=== PATIENT | female | born 1995 | race Caucasian/White ===

== ENCOUNTER 2017-05-15 17:16 | Emergency (ER) | payer BC, OTHER ==
[2017-05-15 17:21] VITALS: BP 121/60; PULSE 66; TEMP 98; BMI 26.5
[2017-05-15 20:56] LABS: BASOPHIL 0.6 % (0-2.0); EOSINOPHIL 0.3 % (0-4.5); MCH 28.4 pg (25.7-33.7); MCHC 34.2 g/dl (32.0-36.0); MEAN CELL VOLUME 82.9 fl (80-96); MEAN PLT VOLUME 8.9 fl (7.5-11.1); NEUTROPHILS 71.4 % (42.8-82.8); PLATELET COUNT 317 K/MM3 (134-434); RDW 13.9 % (11.6-15.6); WHITE BLOOD COUNT 11.5 K/mm3 (4.0-10.0)
--- NOTE | 2017-05-15 21:05 | PDOC ---
History of Present Illness - General History Source: Patient Exam Limitations: No Limitations - History of Present Illness Initial Comments: 05/15/17 21:15 The patient is a 21 year old female () with a significant past medical history of gestational preeclampsia who presents to the ED with a week of nausea and abdominal pain. Patient reports she took an pill last Sunday at [facility]. Since taking the pill, the patient reports generalized abdominal pain, nausea, and generalized weakness. She states she is unable to eat secondary to nausea. She reports taking nausea medication given to her by [facility] with no relief of present symptoms. Denies fevers or chills. Denies vomiting or diarrhea. Denies dysuria or changes in urinary output. Denies any other symptoms. Allergies: Penicillin, Amoxicillin, Sulfite <Migdalia Osorio - Last Filed: 05/16/17 01:43> - General History Source: Patient Exam Limitations: No Limitations <Jordi Molina - Last Filed: 05/16/17 01:50> - General Chief Complaint: Pain Stated Complaint: n/v/ FATIGUE, weak, vag bleed Time Seen by Provider: 05/15/17 21:02 Past History <Migdalia Osorio - Last Filed: 05/16/17 01:43> - Past Medical History Asthma: Yes Cancer: No Cardiac Disorders: No Diabetes: No Disorders: No HTN: Yes Seizures: No Thyroid Disease: No - Reproductive History (#): 1 Para: 0 Therapeutic (s) & number: Yes Spontaneous : 1 - Immunization History Td Vaccination: Yes TDAP Vaccination: Yes Immunization Up to Date: Yes - Psycho/Social/Smoking Cessation Hx Anxiety: No Suicidal Ideation: No Smoking Status: No Smoking History: Never smoked Have you smoked in the past 12 months: No Number of Cigarettes Smoked Daily: 0 Information on smoking cessation initiated: No Hx Alcohol Use: No Drug/Substance Use Hx: No Substance Use Type: None Hx Substance Use Treatment: No <Jordi Molina - Last Filed: 05/16/17 01:50> - Past Medical History Allergies/Adverse Reactions: Allergies Allergy/AdvReac Type Severity Reaction Status Date / Time amoxicillin [Amoxicillin] Allergy Verified 05/15/17 17:17 nitrofurantoin Allergy Verified 05/15/17 17:17 [From Macrobid] nitrofurantoin Allergy Verified 05/15/17 17:17 macrocrystalline [From Macrobid] Penicillins Allergy Verified 05/15/17 17:17 Sulfa (Sulfonamide Allergy Verified 05/15/17 17:17 Antibiotics) Home Medications: Ambulatory Orders Metoclopramide HCl [Reglan -] 10 mg PO TID #30 tablet 05/16/17 Review of Systems - Review of Systems Able to Perform ROS?: Yes Comments:: 05/15/17 21:16 CONSTITUTIONAL: + generalized weakness No reported: Fever, Chills, Diaphoresis, Malaise, Loss of Appetite HEENT: No reported: Rhinorrhea, Nasal Congestion, Throat Pain, Throat Swelling, Difficulty Swallowing, Mouth Swelling, Ear Pain, Eye Pain, Visual Changes CARDIOVASCULAR: No reported: Chest Pain, Syncope, Palpitations, Irregular Heart Rate, Lightheadedness, Peripheral Edema RESPIRATORY: No reported: Cough, Shortness of Breath, SOB with Exertion, Orthopnea, Wheezing , Stridor, Hemoptysis GASTROINTESTINAL: + abdominal pain, nausea No reported: Abdominal Distension, Vomiting, Diarrhea, Constipation, Melena, Hematochezia GENITOURINARY: No reported: Dysuria, Frequency, Urgency, Hesitancy, Flank Pain, Genital Pain MUSCULOSKELETAL: No reported: Myalgia, Arthralgia, Joint Swelling, Back pain, Neck Pain SKIN: No reported: Rash, Itching, Pallor HEMEATOLOGIC/IMMUNOLOGIC: No reported: Easy Bleeding, Easy Bruising, Lymphadenopathy, Frequent infections ENDOCRINE: No reported: Unexplained Weight Gain, Unexplained Weight Loss, Heat Intolerance , Cold Intolerance NEUROLOGIC: No reported: Headache, Focal Weakness, Paresthesias, Vertigo, Lightheadedness, Unsteady Gait, Seizure, Mental Status Changes, Incontinence PSYCHIATRIC: No reported: Anxiety, Depression All Other Systems: Reviewed and Negative <Migdalia Osorio - Last Filed: 05/16/17 01:43> *Physical Exam - Vital Signs Last Vital Signs Temp Pulse Resp BP Pulse Ox 98.0 F 66 18 121/60 100 05/15/17 17:19 05/15/17 17:19 05/15/17 17:19 05/15/17 17:19 05/15/17 17:19 - Physical Exam Comments: 05/15/17 21:16 GENERAL: + mild distress Well developed, well nourished. Awake and alert. HEENT: Normocephalic, atraumatic. PERRLA, EOMI. No conjunctival pallor. Sclera are non- icteric. Moist mucous membranes. Oropharynx is clear. NECK: Supple. Full ROM. No JVD. Carotid pulses 2+ and symmetric, without bruits. No thyromegaly. No lymphadenopathy. CARDIOVASCULAR: Regular rate and rhythm. No murmurs, rubs, or gallops. Distal pulses are 2+ and symmetric. PULMONARY: No evidence of respiratory distress. Lungs clear to auscultation bilaterally. No wheezing, rales or rhonchi. ABDOMINAL: Soft. Non-tender. Non-distended. No rebound or guarding. No organomegaly. Normoactive bowel sounds. MUSCULOSKELETAL Normal range of motion at all joints. No bony deformities or tenderness. No CVA tenderness. EXTREMITIES: No cyanosis. No clubbing. No edema. No calf tenderness. SKIN: Warm and dry. Normal capillary refill. No rashes. No jaundice. NEUROLOGICAL: Alert, awake, appropriate. Cranial nerves 2-12 intact. No deficits to light touch and temperature in face, upper extremities and lower extremities. No motor deficits in the in face, upper extremities and lower extremities. Normoreflexic in the upper and lower extremities. Normal speech. Toes are down- going bilaterally. Gait is normal without ataxia. PSYCHIATRIC: Cooperative. Good eye contact. Appropriate mood and affect. <Migdalia Osorio - Last Filed: 05/16/17 01:43> - Vital Signs Last Vital Signs Temp Pulse Resp BP Pulse Ox 98.0 F 66 18 121/60 100 05/15/17 17:19 05/15/17 17:19 05/15/17 17:19 05/15/17 17:19 05/15/17 17:19 <Jordi Molina - Last Filed: 05/16/17 01:50> ED Treatment Course - LABORATORY CBC & Chemistry Diagram: 05/15/17 20:42 05/15/17 20:42 - ADDITIONAL ORDERS Additional order review: 05/15/17 20:42 RBC 4.55 D MCV 82.9 MCHC 34.2 RDW 13.9 MPV 8.9 Neutrophils % 71.4 Lymphocytes % 22.4 Monocytes % 5.3 Eosinophils % 0.3 D Basophils % 0.6 - RADIOLOGY Radiograph Interpretation: 05/16/17 01:43 EXAM: OB Ultrasound 14 wks single fetus and Duplex scan pelvis, incomplete IMPRESSION: Single live intrauterine Gestational age 7 weeks 0 days heart rate 137 bpm Closed cervix No ovarian torsion. Color flow with appropriate arterial waveforms. 3.3 cm corpus luteum right ovary. Reported by: Imaging director of quality control - Medications Given in the ED: ED Medications Discontinued Medications Generic Name Dose Route Start Last Admin Trade Name Freq PRN Reason Stop Dose Admin Ondansetron HCl 4 mg 05/15/17 21:06 05/15/17 21:08 Zofran Injection IVPUSH 05/15/17 21:07 4 mg ONCE STA Administration <Migdalia Osorio - Last Filed: 05/16/17 01:43> - LABORATORY CBC & Chemistry Diagram: 05/15/17 20:42 05/15/17 20:42 <Jordi Molina - Last Filed: 05/16/17 01:50> *DC/Admit/Observation/Transfer - Attestations Scribe Attestion: 05/15/17 21:16 Documentation prepared by Migdalia Osorio, acting as medical insurance claims processor for Jordi Molina MD <Migdalia Osorio - Last Filed: 05/16/17 01:43> - Discharge Dispostion Admit: No <Jordi Molina - Last Filed: 05/16/17 01:50> Diagnosis at time of Disposition: Nausea & vomiting Qualifiers: Weeks of gestation: less than 8 weeks Qualified Code(s): Z3A.01 - Less than 8 weeks gestation of - Discharge Dispostion Disposition: HOME Condition at time of disposition: Stable - Prescriptions Prescriptions: Metoclopramide HCl [Reglan -] 10 mg PO TID #30 tablet - Patient Instructions Printed Discharge Instructions: Medications and , Nausea and Vomiting- Adult, DI for Nausea -- Adult Additional Instructions: [facility] is what you [facility].
[2017-05-15] MEDS ORDERED: ONDANSETRON 4 MG/2 ML VIAL IVPUSH STA (21:06)
[2017-05-15] MEDS ORDERED: SODIUM CHLORIDE 1,000 ML IV STA (21:06)
[2017-05-15] MEDS ORDERED: ONDANSETRON 4 MG/2 ML VIAL ONE (21:08)
[2017-05-15 21:21] LABS: ALBUMIN 4.1 g/dl (3.4-5.0); ANION GAP 10 (8-16); BILIRUBIN,TOTAL 0.5 mg/dL (0.2-1.0); CALCIUM 9.5 mg/dL (8.5-10.1); CO2 23 mmol/L (21-32); CREATININE 0.6 mg/dL (0.55-1.02); GLUCOSE,RANDOM 77 mg/dL (74-106); SGOT/AST 13 U/L (15-37); SGPT/ALT 38 U/L (12-78); TOT PROT 7.7 g/dl (6.4-8.2)
[2017-05-15 21:37] LABS: ALK PHOS 118 U/L (45-117)
[2017-05-15 22:00] LABS: URINE APPEARANCE SLCLOUDY; URINE BILIRUBIN NEGATIVE (NEGATIVE); URINE BLOOD 2+ (NEGATIVE); URINE COLOR YELLOW; URINE GLUCOSE (UA) NEGATIVE (NEGATIVE); URINE KETONE 2+ (NEGATIVE); URINE NITRITE NEGATIVE (NEGATIVE); URINE PROTEIN NEGATIVE (NEGATIVE); URINE UROBILINOGEN NEGATIVE mg/dL (0.2-1.0)
[2017-05-15 22:01] LABS: URINE LEUK ESTERASE 1+ (NEGATIVE)
[2017-05-15] MEDS ORDERED: SODIUM CHLORIDE 0.9% 1000 ML INFUS.BAG IV ONE (22:09)
[2017-05-15 23:03] LABS: URINE BACTERIA RARE /hpf (NONE SEEN); URINE MUCUS FEW; URINE RBC 3 /hpf (0-3); URINE WBC 7 /hpf (3-5)
[2017-05-16] MEDS ORDERED: METOCLOPRAMIDE HCL 10 MG TABLET (FP) PO ONE ×2 (01:46→01:48)
== END 2017-05-16 01:53 | disposition home or self-care (01) ==
LOC: JER 17:16
PROC: 3E033GC Introduction of Other Therapeutic Substance into Peripheral Vein, Percutaneous Approach (ICD-10-PCS; principal; 2017-05-15)
PROC: 3E0337Z Introduction of Electrolytic and Water Balance Substance into Peripheral Vein, Percutaneous Approach (ICD-10-PCS; 2017-05-15)
DX: O26.891 Other specified pregnancy related conditions, first trimester (principal); Z3A.01 Less than 8 weeks gestation of pregnancy; R11.2 Nausea with vomiting, unspecified; I10 Essential (primary) hypertension; Z88.0 Allergy status to penicillin; Z88.2 Allergy status to sulfonamides
CPT/HCPCS: 36415; 76817-TC; 80053; 81003; 81015; 83690; 84702; 85025; 99283-25

== ENCOUNTER 2018-05-25 21:20 | Emergency (ER) | payer OTHER ==
[2018-05-25 21:26] VITALS: BP 113/63; PULSE 61; TEMP 98.5; BMI 30.2
[2018-05-25] MEDS ORDERED: SODIUM CHLORIDE 1,000 ML IV STA (21:55)
[2018-05-25] MEDS ORDERED: ONDANSETRON 4 MG/2 ML VIAL IVPUSH ONE (21:57)
--- NOTE | 2018-05-25 22:05 | PDOC ---
Attending Attestation - Resident Resident Name: Juan Jose Cohen - ED Attending Attestation I have performed the following: I have examined & evaluated the patient, The case was reviewed & discussed with the resident, I agree w/resident's findings & plan - HPI HPI: 05/26/18 00:26 The patient is a 22 year old female A1, with no significant past medical history, who presents to the emergency department with, 3 days of nausea and vomiting. As per patient, she is not able to keep any food down for the past 3 days. The patient reports similar symptoms in the past when she was . She is sexually active with one partner. Her previous she was preeclamptic. Her LMP was 04/17. She denies any vaginal bleeding or abnormal discharge. She denies recent fevers , chills, headache or dizziness. She denies recent diarrhea or constipation. She denies recent dysuria, frequency, urgency or hematuria. She denies recent chest pain or shortness of breath. Past surgical history: 1 . <Bon Perez - Last Filed: 05/26/18 00:27> - Physicial Exam PE: 05/26/18 20:34 Agree with resident's exam - Medical Decision Making 05/26/18 00:27 Pt feels well; She is drinking ice water and she has no nausea or vomiting at this time. She is looking well. Sono shows a single IUP at 5.5 to 6 weeks. Pt is ready for discharge home once her IV D5NSS runs through. 05/26/18 00:34 Patient Name: ECTOR NUÑEZ THIS IS A PRELIMINARY REPORT FROM [facility] DOCENT DATE OF SERVICE: 2018-05-25 23:25:40 IMAGES: 34 EXAM: Ultrasound , first trimester and pelvic duplex HISTORY: COMPARISON: None. FINDINGS: Ultrasound :Uterus is anteverted and measures 7.3centimeters in length. There is a single live IUP with estimated gestational age of 6weeks and zerodays. There is a normal early heart rate of 107beats per minute. There is no subchorionic bleed. The right ovary measures 3.2centimeters in length and appears normal. The left ovary measures 4.4centimeters in length and appears normal. There is minimal free fluid which may be physiologic. Pelvic duplex: There is normal arterial and venous flow in both ovaries. IMPRESSION: Live IUP with estimated age 6 weeks zero days without definite abnormalities <Eli Courtney - Last Filed: 05/26/18 20:34> Attestations - Attestations 05/26/18 00:27 Documentation prepared by Bon Perez, acting as medical dermatologist for Eli Courtney MD. <Bon Perez - Last Filed: 05/26/18 00:27>
[2018-05-25 22:19] LABS: URINE APPEARANCE SLCLOUDY; URINE BILIRUBIN NEGATIVE (<2.0 mg/dL); URINE COLOR DKYELLOW; URINE GLUCOSE (UA) NEGATIVE (NEGATIVE); URINE KETONE 2+ (NEGATIVE); URINE LEUK ESTERASE TRACE (NEGATIVE); URINE NITRITE NEGATIVE (NEGATIVE); URINE PROTEIN 1+ (NEGATIVE); URINE UROBILINOGEN NEGATIVE mg/dL (0.2-1.0)
[2018-05-25 22:21] LABS: EPI CELLS FEW /HPF (FEW); URINE MUCUS MANY
[2018-05-25 22:29] LABS: HCG,QUALITATIVE URINE Positive
[2018-05-25] MEDS ORDERED: ONDANSETRON 4 MG/2 ML VIAL ONE (22:29)
--- NOTE | 2018-05-25 22:35 | PDOC ---
History of Present Illness - General History Source: Patient Exam Limitations: No Limitations - History of Present Illness Initial Comments: 05/25/18 22:31 22f, A1 presenting with nausea and vomiting for the past 3 days. Can't keep anything down. Vomiting multiple times a day. Has similar symptoms when . Had preeclampsia during her last , for which she had a . LMP: April 17. <Juan Jose Cohen - Last Filed: 05/26/18 00:04> <Eli Courtney - Last Filed: 05/26/18 00:39> - General Chief Complaint: Nausea/Vomiting Stated Complaint: SICK Time Seen by Provider: 05/25/18 21:55 Past History - Past Medical History Asthma: Yes Cancer: No Cardiac Disorders: No COPD: No Diabetes: No Disorders: No HTN: Yes Seizures: No Thyroid Disease: No - Reproductive History (#): 1 Para: 0 Therapeutic (s) & number: Yes Spontaneous : 1 - Immunization History Td Vaccination: Yes TDAP Vaccination: Yes Immunization Up to Date: Yes - Suicide/Smoking/Psychosocial Hx Smoking Status: No Smoking History: Never smoked Have you smoked in the past 12 months: No Number of Cigarettes Smoked Daily: 0 Information on smoking cessation initiated: No Hx Alcohol Use: No Drug/Substance Use Hx: No Substance Use Type: None Hx Substance Use Treatment: No <Juan Jose Cohen - Last Filed: 05/26/18 00:04> <Eli Courtney - Last Filed: 05/26/18 00:39> - Past Medical History Allergies/Adverse Reactions: Allergies Allergy/AdvReac Type Severity Reaction Status Date / Time amoxicillin [Amoxicillin] Allergy Verified 05/25/18 21:21 nitrofurantoin Allergy Verified 05/25/18 21:21 [From Macrobid] nitrofurantoin Allergy Verified 05/25/18 21:21 macrocrystalline [From Macrobid] Penicillins Allergy Verified 05/25/18 21:21 Sulfa (Sulfonamide Allergy Verified 05/25/18 21:21 Antibiotics) Home Medications: Ambulatory Orders Metoclopramide HCl [Reglan -] 10 mg PO TID #30 tablet 05/16/17 Vitamins (Sjr) - 1 tab PO DAILY #30 tablet 05/25/18 Abd/GI Specific PMHX - Complaint Specific PMHX Colitis: No Diverticulitis: No Gall Bladder Disease: No GERD: No Hepatitis: No Irritable Bowel Synd (IBS): No Pancreatitis: No GI Ulcer Disease: No <Juan Jose Cohen - Last Filed: 05/26/18 00:04> Review of Systems - Review of Systems Able to Perform ROS?: Yes Is the patient limited Greek proficient: No Constitutional: No: Symptoms Reported HEENTM: No: Symptoms Reported Respiratory: No: Symptoms reported Cardiac (ROS): No: Symptoms Reported ABD/GI: Yes: See HPI : No: Symptoms Reported Musculoskeletal: No: Symptoms Reported Integumentary: No: Symptoms Reported Neurological: No: Symptoms reported All Other Systems: Reviewed and Negative <CohenJuan Jose - Last Filed: 05/26/18 00:04> *Physical Exam - Vital Signs Last Vital Signs Temp Pulse Resp BP Pulse Ox 98.5 F 61 16 113/63 100 05/25/18 21:23 05/25/18 21:23 05/25/18 21:23 05/25/18 21:23 05/25/18 21:23 - Physical Exam General Appearance: Yes: Nourished, Appropriately Dressed, Apparent Distress HEENT: positive: EOMI, INA, Normal ENT Inspection Neck: negative: Tender Respiratory/Chest: positive: Lungs Clear, Normal Breath Sounds. negative: Chest Tender, Respiratory Distress Cardiovascular: positive: Regular Rhythm, Regular Rate, S1, S2 Gastrointestinal/Abdominal: positive: Normal Bowel Sounds, Flat, Soft. negative : Tender Extremity: positive: Normal Capillary Refill, Normal Inspection, Normal Range of Motion Integumentary: positive: Normal Color, Dry, Warm Neurologic: positive: Fully Oriented, Alert, Normal Mood/Affect <VickiJuan Jose - Last Filed: 05/26/18 00:04> - Vital Signs Last Vital Signs Temp Pulse Resp BP Pulse Ox 98.5 F 61 16 113/63 100 05/25/18 21:23 05/25/18 21:23 05/25/18 21:23 05/25/18 21:23 05/25/18 21:23 <Eli Courtney - Last Filed: 05/26/18 00:39> ED Treatment Course - LABORATORY CBC & Chemistry Diagram: 05/25/18 22:37 05/25/18 22:37 - ADDITIONAL ORDERS Additional order review: Laboratory Results 05/25/18 21:59 Urine Color Dkyellow Urine Appearance Slcloudy Urine pH 6.0 Ur Specific [place] 1.028 Urine Protein 1+ H Urine Glucose (UA) Negative Urine Ketones 2+ H Urine Blood Negative Urine Nitrite Negative Urine Bilirubin Negative Urine Urobilinogen Negative Ur Leukocyte Esterase Trace Urine WBC (Auto) 5 Urine RBC (Auto) 7 Ur Epithelial Cells Few Urine Mucus Many <Juan Jose Cohen - Last Filed: 05/26/18 00:04> - LABORATORY CBC & Chemistry Diagram: 05/25/18 22:37 05/25/18 22:37 - ADDITIONAL ORDERS Additional order review: Laboratory Results 05/25/18 05/25/18 22:37 21:59 Sodium 134 L Potassium 3.9 Chloride 101 Carbon Dioxide 24 Anion Gap 9 BUN 13 Creatinine 0.7 Creat Clearance w eGFR > 60 Random Glucose 81 Calcium 9.0 Total Bilirubin 0.4 AST 16 ALT 18 Alkaline Phosphatase 112 Total Protein 8.0 Albumin 4.1 Beta HCG, Quant 83174.1 Urine Color Dkyellow Urine Appearance Slcloudy Urine pH 6.0 Ur Specific [place] 1.028 Urine Protein 1+ H Urine Glucose (UA) Negative Urine Ketones 2+ H Urine Blood Negative Urine Nitrite Negative Urine Bilirubin Negative Urine Urobilinogen Negative Ur Leukocyte Esterase Trace Urine WBC (Auto) 5 Urine RBC (Auto) 7 Ur Epithelial Cells Few Urine Mucus Many Urine HCG, Qual Positive 05/25/18 22:37 RBC 4.49 MCV 85.6 MCHC 35.0 RDW 12.9 MPV 9.1 Neutrophils % 79.1 Lymphocytes % 15.5 D Monocytes % 4.4 Eosinophils % 0.2 Basophils % 0.8 - Medications Given in the ED: ED Medications Discontinued Medications Generic Name Dose Route Start Last Admin Trade Name Freq PRN Reason Stop Dose Admin Sodium Chloride 1,000 mls @ 1,000 mls/hr 05/25/18 21:55 05/25/18 22:42 Normal Saline - IV 05/25/18 22:54 1,000 mls/hr ASDIR STA Administration Ondansetron HCl 4 mg 05/25/18 21:57 05/25/18 22:35 Zofran Injection IVPUSH 05/25/18 21:58 4 mg ONCE ONE Administration <Eli Courtney - Last Filed: 05/26/18 00:39> Medical Decision Making - Medical Decision Making 05/25/18 22:52 Zofran and fNS for rehydration. Patient on urine hcg. Will draw betaHCG and confirm IUP on ultrasound. By LMP: 5w and 3 days . 05/25/18 23:41 05/25/18 23:46 [id number] [id number]. Ultrasound pending. Will give D5NS and discharge with ongyn follow up. 05/26/18 00:04 Patient signed out to Dr. Meonn <Juan Jose Cohen - Last Filed: 05/26/18 00:04> *DC/Admit/Observation/Transfer <Juan Jose Cohen - Last Filed: 05/26/18 00:04> - Discharge Dispostion Decision to Admit order: No <Eli Courtney - Last Filed: 05/26/18 00:39> Diagnosis at time of Disposition: First trimester , Nausea & vomiting - Discharge Dispostion Disposition: HOME Condition at time of disposition: Improved - Prescriptions Prescriptions: Vitamins (Sjr) - 1 tab PO DAILY #30 tablet - Patient Instructions Printed Discharge Instructions: DI for Morning Sickness
[2018-05-25 22:46] LABS: BASO % 0.8 % (0-2.0); EOS % 0.2 % (0-4.5); HEMATOCRIT 38.5 % (32.4-45.2); HEMOGLOBIN 13.5 GM/dL (10.7-15.3); LYMPH % 15.5 % (8-40); MCH 29.9 pg (25.7-33.7); MEAN CELL VOLUME 85.6 fl (80-96); MEAN PLT VOLUME 9.1 fl (7.5-11.1); MONO % 4.4 % (3.8-10.2); NEUT % 79.1 % (42.8-82.8); PLATELET COUNT 275 K/MM3 (134-434); RBC 4.49 M/mm3 (3.60-5.2); RDW 12.9 % (11.6-15.6); WHITE BLOOD COUNT 10.7 K/mm3 (4.0-10.0)
[2018-05-25 23:24] LABS: ALBUMIN 4.1 g/dl (3.4-5.0); ANION GAP 9 MMOL/L (8-16); BILIRUBIN,TOTAL 0.4 mg/dL (0.2-1.0); BLOOD UREA NITROGEN 13 mg/dL (7-18); CHLORIDE 101 mmol/L (98-107); CO2 24 mmol/L (21-32); CREATININE 0.7 mg/dL (0.55-1.02); GLUCOSE,RANDOM 81 mg/dL (74-106); POTASSIUM 3.9 mmol/L (3.5-5.1); SGOT/AST 16 U/L (15-37); SGPT/ALT 18 U/L (12-78); SODIUM 134 mmol/L (136-145)
[2018-05-25 23:42] LABS: ALK PHOS 112 U/L (45-117)
[2018-05-25] MEDS ORDERED: DEXTROSE 5%-NORMAL SALINE 1,000 ML IV ONE (23:44)
== END 2018-05-26 00:45 | disposition home or self-care (01) ==
LOC: JER 21:20
PROC: 3E0337Z Introduction of Electrolytic and Water Balance Substance into Peripheral Vein, Percutaneous Approach (ICD-10-PCS; principal; 2018-05-25)
PROC: 3E033GC Introduction of Other Therapeutic Substance into Peripheral Vein, Percutaneous Approach (ICD-10-PCS; 2018-05-25)
DX: O26.891 Other specified pregnancy related conditions, first trimester (principal); O21.0 Mild hyperemesis gravidarum; Z3A.01 Less than 8 weeks gestation of pregnancy
CPT/HCPCS: 36415; 76817-TC; 80053; 81003; 81015; 84702; 84703; 85025; 96361; 96374; 99282-25; J7030

== ENCOUNTER 2019-03-28 01:06 | Emergency (ER) | payer OTHER ==
--- NOTE | 2019-03-28 01:39 | PDOC ---
History of Present Illness - General Stated Complaint: BLOOD PRESSURE PROBLEM,DIZZINESS Time Seen by Provider: 03/28/19 01:38 History Source: Patient - History of Present Illness Initial Comments: 03/28/19 02:10 The patient is a 23 year old female with a PMH of pre-eclampsia who presents to our ED c/o 2-3 days of abdominal cramping. Cramping is sharp, constant, with some radiation to her back. Endorses multiple episodes of clear emesis. Limitedly tolerating liquid PO intake. No fevers, no dysuria/hematuria, cannot recall last BM. LMP was last month, patient states she is uncertain if she is . ROS is positive for shortness of breath. No chest pain, palpitations , lightheadedness, syncope. Allergy: Pencillins, Sulfa Surgical: C/S Social: denies toxic habits PMD: cannot recall name Past History - Past Medical History Allergies/Adverse Reactions: Allergies Allergy/AdvReac Type Severity Reaction Status Date / Time amoxicillin [Amoxicillin] Allergy Verified 05/29/18 10:29 nitrofurantoin Allergy Verified 05/29/18 10:29 [From Macrobid] nitrofurantoin Allergy Verified 05/29/18 10:29 macrocrystalline [From Macrobid] Penicillins Allergy Verified 05/29/18 10:29 Sulfa (Sulfonamide Allergy Verified 05/29/18 10:29 Antibiotics) Home Medications: Ambulatory Orders Vitamins (Sjr) - 1 tab PO DAILY #30 tablet 05/25/18 Ondansetron HCl [Zofran] 4 mg PO TID PRN #12 tablet 05/29/18 Asthma: Yes Cancer: No Cardiac Disorders: Yes (MURMUR) COPD: No Diabetes: No Disorders: No HTN: Yes Seizures: No Thyroid Disease: No - Reproductive History (#): 1 Para: 0 Therapeutic (s) & number: Yes Spontaneous : 1 - Immunization History Td Vaccination: Yes TDAP Vaccination: Yes Immunization Up to Date: Yes - Suicide/Smoking/Psychosocial Hx Smoking Status: No Smoking History: Never smoked Have you smoked in the past 12 months: No Number of Cigarettes Smoked Daily: 0 Hx Alcohol Use: No Drug/Substance Use Hx: No Substance Use Type: None Hx Substance Use Treatment: No Review of Systems - Review of Systems Constitutional: Yes: Chills. No: Fever HEENTM: No: Recent change in vision Respiratory: Yes: Shortness of Breath. No: Cough, Hemoptysis Cardiac (ROS): No: Chest Pain, Lightheadedness, Palpitations ABD/GI: Yes: Nausea, Vomiting. No: Constipated, Diarrhea : No: Burning, Dysuria *Physical Exam - Physical Exam General Appearance: Yes: Nourished, Appropriately Dressed HEENT: positive: Normal Voice, Hearing Grossly Normal Neck: positive: Trachea midline, Supple Respiratory/Chest: positive: Lungs Clear, Normal Breath Sounds Cardiovascular: positive: S1, S2, Systolic Murmur Vascular Pulses: Dorsalis-Pedis (R): 2+, Doralis-Pedis (L): 2+ Gastrointestinal/Abdominal: positive: Other (Epigastric TTP w/o peritoneal sign , (+) bowel sound) Musculoskeletal: negative: CVA Tenderness (R), CVA Tenderness (L) Extremity: positive: Normal Capillary Refill, Normal Inspection Integumentary: positive: Normal Color, Dry, Warm Neurologic: 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 Bradycardic (HR 55), other VS unremarkable Epigastric TTP w/o peritoneal sign Frontal diagnosis: cholecystitis, pancreatitis, viral gastroenteritis, , cystitis, pyelonephritis. PLAN: Lipase, Basic Labs, UA/Urine Cx, Serum , GB U/S, GI cocktail. Reassess. 03/28/19 03:30 Patient reassessed @ bedside, symptomatically improved 03/28/19 03:53 Serum (+) Na 135 - likely 2/2 to decreased PO intake Other labs unremarkable 03/28/19 03:59 Patient reassessed @ bedside Repeat belly exam shows (+) RUQ TTP 03/28/19 04:07 My read of GB U/S shows no cholelithiasis, no AGBW edema Formal read pending 03/28/19 04:08 03/28/19 04:42 GB U/S negative for acute cholecystitis UA pending to evaluate for Asx bacteruria in requiring Abx therapy 03/28/19 04:51 Patient remains bradycardic (high 50's), RR 8 03/28/19 04:53 Review of EMR shows patient w/HR 60's-70's on previous admission No syncopal symptoms, normal chrontropicity 03/28/19 04:56 B-HCG 34,007 c/w 4+ week gestation 03/28/19 05:22 UA pending Patient states this is not a desired , [facility] 03/28/19 05:43 03/28/19 05:53 UA clean, Cx pending Will discharge home with return precautions. 03/28/19 06:13 I discussed the physical exam findings, ancillary test results and final diagnoses with the patient. I answered all of the patient's questions. The patient was satisfied with the care received and felt comfortable with the discharge plan and treatment plan. The patient will return to the Emergency Department with any new, persistent or worsening symptoms. 03/28/19 06:14 Clinical Impression: Abdominal pain during *DC/Admit/Observation/Transfer Diagnosis at time of Disposition: Abdominal pain affecting - Discharge Dispostion Disposition: HOME Condition at time of disposition: Good Decision to Admit order: No - Referrals Referrals: Chad Hopkins MD [Primary Care Provider] - - Patient Instructions Printed Discharge Instructions: DI for Abdominal Pain -- Early Additional Instructions: Please follow-up with your primary care doctor (contact information provided) in the next 3 days. You can call [facility] to discuss options for terminating your . Their number is . Call them as soon as possible as your options become limited the farther along you progress in your . Return to the Emergency Department for any new/worsening/concerning symptoms. - Post Discharge Activity
[2019-03-28] MEDS ORDERED: ACETAMINOPHEN 1000 MG/100 ML VIAL (NON FORMULARY) IVPB ONE (02:18)
[2019-03-28] MEDS ORDERED: ONDANSETRON 4 MG/2 ML VIAL IVPUSH ONE (02:18)
[2019-03-28] MEDS ORDERED: SODIUM CHLORIDE 0.9% 500 ML INFUS.BAG IV ONE ×2 (02:18→04:19)
[2019-03-28] MEDS ORDERED: MAG HYDROX/AL HYDROX/SIMETH -MYLANTA- ORAL SUSPENSION PO ONE (02:18)
[2019-03-28] MEDS ORDERED: ACETAMINOPHEN INJECTION 100 ML IVPB ONE (03:02)
[2019-03-28] MEDS ORDERED: ONDANSETRON 4 MG/2 ML VIAL ONE (03:02)
[2019-03-28 03:15] VITALS: BP 118/70; PULSE 55; TEMP 99.3; BMI 30.2
[2019-03-28 03:21] LABS: EOS % 0.3 % (0-4.5); HEMATOCRIT 39.9 % (32.4-45.2); HEMOGLOBIN 13.8 GM/dL (10.7-15.3); LYMPH % 23.7 % (8-40); MCH 30.1 pg (25.7-33.7); MCHC 34.6 g/dl (32.0-36.0); MEAN CELL VOLUME 87.2 fl (80-96); MEAN PLT VOLUME 9.1 fl (7.5-11.1); MONO % 6.2 % (3.8-10.2); NEUT % 68.8 % (42.8-82.8); PLATELET COUNT 300 K/MM3 (134-434); RBC 4.58 M/mm3 (3.60-5.2); RDW 12.8 % (11.6-15.6); WHITE BLOOD COUNT 8.2 K/mm3 (4.0-10.0)
[2019-03-28 03:41] LABS: ALBUMIN 4.7 g/dl (3.4-5.0); BILIRUBIN,TOTAL 1.1 mg/dL (0.2-1); BLOOD UREA NITROGEN 16.4 mg/dL (7-18); CALCIUM 9.9 mg/dL (8.5-10.1); CREATININE 0.7 mg/dL (0.55-1.3); POTASSIUM 3.7 mmol/L (3.5-5.1); TOT PROT 8.6 g/dl (6.4-8.2)
--- NOTE | 2019-03-28 05:22 | PDOC ---
Attending Attestation - Resident Resident Name: Anel Mclaughlin - ED Attending Attestation I have performed the following: I have examined & evaluated the patient, The case was reviewed & discussed with the resident, I agree w/resident's findings & plan, Exceptions are as noted - HPI HPI: 03/28/19 05:26 23 F presents to ED with epigastric pain and nausea. Pt states that she has had poor PO intake for the past 4 days due to nausea. Denies vomiting. Endorses epigastric pain. No lower abdominal pain. No vaginal bleeding or discharge. Pt in ED was found to have + test. Pt states LMP was about 1 month ago. Pt states that she had bad nausea with one of her pregnancies, similar to what she is experiencing now. - Physicial Exam PE: 03/28/19 05:29 GENERAL: Awake, alert, and fully oriented, in no acute distress. HEAD: No signs of trauma EYES: PERRLA, EOMI, sclera anicteric, conjunctiva clear ENT: Auricles normal inspection, hearing grossly normal, nares patent, oropharynx clear without exudates. Moist mucosa NECK: Nontender, no stepoffs, Normal ROM, supple, no lymphadenopathy, JVD, or masses LUNGS: Breath sounds equal, clear to auscultation bilaterally. No wheezes, and no crackles HEART: Regular rate and rhythm, normal S1 and S2, no murmurs, rubs or gallops ABDOMEN: + epigastric TTP, normoactive bowel sounds. No guarding, no rebound. No masses EXTREMITIES: Normal range of motion, no edema. No clubbing or cyanosis. No cords, erythema, or tenderness NEUROLOGICAL: Cranial nerves II through XII intact. 5/5 strength and sensation in all extremities, Normal speech, normal gait, normal cerebellar function SKIN: Warm, Dry, normal turgor, no rashes or lesions noted. - Medical Decision Making 03/28/19 05:29 23 F with + test, presenting with nausea and epigastric pain. Possible hyperemesis, though pt has not vomited. Exam notable for epigastric pain, likely gastritis. - Labs - RUQ sono Labs wnl Prelim US read unremarkable 03/28/19 05:54 UA negative Pt is well appearing, with normal vitals. Clinically stable for DC at this time. I discussed the physical exam findings, ancillary test results and final diagnoses with the patient. I answered all of the patient's questions. The patient was satisfied with the care received and felt comfortable with the discharge plan and treatment plan. The patient agrees to follow up with the primary care physician within 24-72 hours.
[2019-03-28 05:53] LABS: URINE APPEARANCE CLEAR; URINE BILIRUBIN NEGATIVE (NEGATIVE); URINE COLOR DK YELLOW; URINE GLUCOSE (UA) NEGATIVE (NEGATIVE); URINE KETONE 4+ (NEGATIVE); URINE LEUK ESTERASE NEGATIVE (NEGATIVE); URINE NITRITE NEGATIVE (NEGATIVE); URINE PROTEIN NEGATIVE (NEGATIVE)
== END 2019-03-28 06:29 | disposition home or self-care (01) ==
LOC: JER 01:06
PROC: 3E033GC Introduction of Other Therapeutic Substance into Peripheral Vein, Percutaneous Approach (ICD-10-PCS; principal; 2019-03-28)
PROC: 3E033NZ Introduction of Analgesics, Hypnotics, Sedatives into Peripheral Vein, Percutaneous Approach (ICD-10-PCS; 2019-03-28)
PROC: 3E0337Z Introduction of Electrolytic and Water Balance Substance into Peripheral Vein, Percutaneous Approach (ICD-10-PCS; 2019-03-28)
DX: O26.891 Other specified pregnancy related conditions, first trimester (principal); O21.8 Other vomiting complicating pregnancy; R10.9 Unspecified abdominal pain; Z3A.01 Less than 8 weeks gestation of pregnancy
CPT/HCPCS: 36415; 76705-TC; 80053; 81003; 83690; 84702; 84703; 85025; 87086; 87186; 96374; 96375; 99282-25; J0131

== ENCOUNTER 2019-10-21 10:32 | Emergency (ER) | payer OTHER ==
[2019-10-21 10:48] VITALS: BMI 24.0
--- NOTE | 2019-10-21 10:49 | PDOC ---
Rapid Medical Evaluation Chief Complaint: Lightheaded Time Seen by Provider: 10/21/19 10:48 Medical Evaluation: Allergies Allergy/AdvReac Type Severity Reaction Status Date / Time amoxicillin [Amoxicillin] Allergy Verified 05/29/18 10:29 nitrofurantoin Allergy Verified 05/29/18 10:29 [From Macrobid] nitrofurantoin Allergy Verified 05/29/18 10:29 macrocrystalline [From Macrobid] Penicillins Allergy Verified 05/29/18 10:29 Sulfa (Sulfonamide Allergy Verified 05/29/18 10:29 Antibiotics) 10/21/19 10:48 Patient is 23F with history of pre-eclampsia, here today with weakness, nausea, shortness of breath. Vitals normal. Abdomen soft and nontender. CBC, CMP, beta quant, ua, uc ordered. Patient to main ED. Discharge Disposition - Diagnosis Nausea - Discharge Dispostion Condition at time of disposition: Stable - Referrals - Patient Instructions - Post Discharge Activity
[2019-10-21] MEDS ORDERED: SODIUM CHLORIDE 1,000 ML IV STA (11:26)
[2019-10-21] MEDS ORDERED: ONDANSETRON 4 MG/2 ML VIAL IVPUSH ONE (11:26)
[2019-10-21 11:29] LABS: HEMATOCRIT 39.2 % (32.4-45.2); HEMOGLOBIN 13.9 GM/dL (10.7-15.3); MCH 30.8 pg (25.7-33.7); MCHC 35.3 g/dl (32.0-36.0); MEAN CELL VOLUME 87.2 fl (80-96); MEAN PLT VOLUME 8.6 fl (7.5-11.1); PLATELET COUNT 310 K/MM3 (134-434); RDW 12.6 % (11.6-15.6); WHITE BLOOD COUNT 9.2 K/mm3 (4.0-10.0)
[2019-10-21 11:33] LABS: HYALINE CASTS 8 /lpf (0-8); PH,URINE 7.5 (5.0-8.0); URINE APPEARANCE CLEAR; URINE BACTERIA 162.3 /hpf (NEGATIVE); URINE BILIRUBIN NEGATIVE (NEGATIVE); URINE COLOR YELLOW; URINE GLUCOSE (UA) NEGATIVE (NEGATIVE); URINE KETONE NEGATIVE (NEGATIVE); URINE LEUK ESTERASE 1+ (NEGATIVE); URINE NITRITE NEGATIVE (NEGATIVE); URINE PROTEIN NEGATIVE (NEGATIVE); URINE RBC 3 /hpf (0-4); URINE WBC 3 /hpf (0-5)
--- NOTE | 2019-10-21 11:55 | PDOC ---
History of Present Illness - General Chief Complaint: Lightheaded Stated Complaint: NAUSEA/DIZZINESS Time Seen by Provider: 10/21/19 10:48 History Source: Patient Exam Limitations: No Limitations - History of Present Illness Initial Comments: 10/21/19 11:47 23-year-old female currently 10 weeks presents the ED with complaints of nausea since yesterday associated mild dizziness worsened with standing since yesterday. Patient states has not been drinking enough fluids but states no urinary complaints or bowel complaints. Patient also denies fever , chills, chest pain or palpitations. Patient does state mild shortness of breath intermittently for the past few days Last episode being early this a.m.. Patient denies any recent travel, recent surgery or clotting disorders. Is this a multiple visit Asthma Patient?: No Timing/Duration: 24 hours Severity: mild Associated Symptoms: reports: nausea/vomiting, weakness Past History - Travel Traveled outside of the country in the last 30 days: No Close contact w/someone who was outside of country & ill: No - Past Medical History Allergies/Adverse Reactions: Allergies Allergy/AdvReac Type Severity Reaction Status Date / Time amoxicillin [Amoxicillin] Allergy Verified 10/21/19 11:38 nitrofurantoin Allergy Verified 10/21/19 11:38 [From Macrobid] nitrofurantoin Allergy Verified 10/21/19 11:38 macrocrystalline [From Macrobid] Penicillins Allergy Verified 10/21/19 11:38 Sulfa (Sulfonamide Allergy Verified 10/21/19 11:38 Antibiotics) Asthma: Yes Cancer: No Cardiac Disorders: Yes (MURMUR) COPD: No Diabetes: No Disorders: No HTN: Yes Seizures: No Thyroid Disease: No - Reproductive History (#): 1 Para: 0 Therapeutic (s) & number: Yes Spontaneous : 1 - Immunization History Td Vaccination: Yes TDAP Vaccination: Yes Immunization Up to Date: Yes - Psycho Social/Smoking Cessation Hx Smoking Status: No Smoking History: Never smoked Have you smoked in the past 12 months: No Number of Cigarettes Smoked Daily: 0 Information on smoking cessation initiated: No Hx Alcohol Use: No Drug/Substance Use Hx: No Substance Use Type: None Hx Substance Use Treatment: No Patient Lives Alone: No Lives with/in: children Review of Systems - Review of Systems Able to Perform ROS?: No Is the patient limited [place] proficient: No Constitutional: Yes: Weakness HEENTM: No: Symptoms Reported Respiratory: Yes: Shortness of Breath Cardiac (ROS): No: Symptoms Reported ABD/GI: Yes: Nausea, Poor Appetite, Poor Fluid Intake. No: Constipated, Diarrhea, Vomiting, Abdominal cramping : No: Symptoms Reported Musculoskeletal: No: Symptoms Reported Integumentary: No: Symptoms Reported Neurological: Yes: Dizziness Hematologic/Lymphatic: No: Symptoms Reported *Physical Exam - Vital Signs Last Vital Signs Temp Pulse Resp BP Pulse Ox 98.3 F 85 18 111/73 100 10/21/19 10:45 10/21/19 10:45 10/21/19 10:45 10/21/19 10:45 10/21/19 10:45 - Physical Exam General Appearance: Yes: Nourished, Appropriately Dressed. No: Apparent Distress HEENT: negative: Pale Conjunctivae Neck: positive: Normal Thyroid, Supple Respiratory/Chest: positive: Lungs Clear, Normal Breath Sounds. negative: Respiratory Distress, Accessory Muscle Use Cardiovascular: positive: Regular Rhythm, Regular Rate. negative: Murmur Gastrointestinal/Abdominal: positive: Soft. negative: Tenderness Integumentary: positive: Normal Color, Warm, Moist Neurologic: positive: Motor Strength 5/5 (ambulatory) ED Treatment Course - LABORATORY CBC & Chemistry Diagram: 10/21/19 11:10 10/21/19 11:10 - ADDITIONAL ORDERS Additional order review: Laboratory Results 10/21/19 11:15 Urine Color Yellow Urine Appearance Clear Urine pH 7.5 D Ur Specific [place] 1.025 Urine Protein Negative Urine Glucose (UA) Negative Urine Ketones Negative Urine Blood Negative Urine Nitrite Negative Urine Bilirubin Negative Urine Urobilinogen 2.0 H Ur Leukocyte Esterase 1+ H Urine WBC (Auto) 3 Urine RBC (Auto) 3 Urine Casts (Auto) 8 U Epithel Cells (Auto) 6.0 Urine Bacteria (Auto) 162.3 10/21/19 11:10 RBC 4.50 MCV 87.2 MCHC 35.3 RDW 12.6 MPV 8.6 Medical Decision Making - Medical Decision Making 10/21/19 11:51 Chief complaint: First trimester with nausea decreased appetite dizziness and intermittent shortness of breath no other complaints. 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 and f/u with pmd dr manuel Exam: Vital stable, no abd tenderness, lcta, no abnormal physical findings Plan: labs, urine, ivf, iv zofran 10/21/19 13:35 Laboratory Tests 10/21/19 10/21/19 10/21/19 11:10 11:10 11:10 WBC 9.2 Hgb 13.9 Hct 39.2 Sodium 136 Potassium 4.2 Chloride 106 Carbon Dioxide 25 Anion Gap 6 L BUN 14.7 Creatinine 0.7 Est GFR (CKD-EPI)AfAm 139.57 Est GFR (CKD-EPI)NonAf 120.42 Random Glucose 100 Calcium 9.4 Total Bilirubin 0.3 AST 17 ALT 25 Alkaline Phosphatase 110 Total Protein 7.4 Albumin 3.8 Urine Urobilinogen Ur Leukocyte Esterase Urine Bacteria (Auto) Blood Type O POSITIVE 10/21/19 11:15 WBC Hgb Hct Sodium Potassium Chloride Carbon Dioxide Anion Gap BUN Creatinine Est GFR (CKD-EPI)AfAm Est GFR (CKD-EPI)NonAf Random Glucose Calcium Total Bilirubin AST ALT Alkaline Phosphatase Total Protein Albumin Urine Urobilinogen 2.0 H Ur Leukocyte Esterase 1+ H Urine Bacteria (Auto) 162.3 Blood Type Patient states feeling better. Will discharge patient home with Zofran. Urine culture was sent. Patient is otherwise having no complaints of urinary tract infections Discharge - Discharge Information Problems reviewed: No Clinical Impression/Diagnosis: Nausea Condition: Improved Disposition: HOME - Follow up/Referral Referrals: Chad Manuel MD [Primary Care Provider] - - Patient Discharge Instructions Patient Printed Discharge Instructions: Nausea of (Alternative Therapy) Additional Instructions: Please take Zofran as needed for nausea. Eat small frequent meals throughout the day. Please follow-up with your DESKTOP SUPPORT ASSOCIATE. - Post Discharge Activity
[2019-10-21 11:56] LABS: ALBUMIN 3.8 g/dl (3.4-5.0); BILIRUBIN,TOTAL 0.3 mg/dL (0.2-1); BLOOD UREA NITROGEN 14.7 mg/dL (7-18); CALCIUM 9.4 mg/dL (8.5-10.1); CREATININE 0.7 mg/dL (0.55-1.3); POTASSIUM 4.2 mmol/L (3.5-5.1); TOT PROT 7.4 g/dl (6.4-8.2)
[2019-10-21] MEDS ORDERED: ONDANSETRON 4 MG/2 ML VIAL ONE (12:07)
--- NOTE | 2019-10-21 13:50 | PDOC ---
*Physical Exam - Vital Signs Last Vital Signs Temp Pulse Resp BP Pulse Ox 98.3 F 85 18 111/73 100 10/21/19 10:45 10/21/19 10:45 10/21/19 10:45 10/21/19 10:45 10/21/19 10:45 ED Treatment Course - LABORATORY CBC & Chemistry Diagram: 10/21/19 11:10 10/21/19 11:10 - ADDITIONAL ORDERS Additional order review: Laboratory Results 10/21/19 10/21/19 10/21/19 11:15 11:10 11:10 Sodium 136 Potassium 4.2 Chloride 106 Carbon Dioxide 25 Anion Gap 6 L BUN 14.7 Creatinine 0.7 Est GFR (CKD-EPI)AfAm 139.57 Est GFR (CKD-EPI)NonAf 120.42 Random Glucose 100 Calcium 9.4 Total Bilirubin 0.3 AST 17 ALT 25 Alkaline Phosphatase 110 Total Protein 7.4 Albumin 3.8 Urine Color Yellow Urine Appearance Clear Urine pH 7.5 D Ur Specific [place] 1.025 Urine Protein Negative Urine Glucose (UA) Negative Urine Ketones Negative Urine Blood Negative Urine Nitrite Negative Urine Bilirubin Negative Urine Urobilinogen 2.0 H Ur Leukocyte Esterase 1+ H Urine WBC (Auto) 3 Urine RBC (Auto) 3 Urine Casts (Auto) 8 U Epithel Cells (Auto) 6.0 Urine Bacteria (Auto) 162.3 Blood Type O POSITIVE Antibody Screen Negative 10/21/19 11:10 RBC 4.50 MCV 87.2 MCHC 35.3 RDW 12.6 MPV 8.6 - Medications Given in the ED: ED Medications Discontinued Medications Generic Name Dose Route Start Last Admin Trade Name Freq PRN Reason Stop Dose Admin Sodium Chloride 1,000 mls @ 1,000 mls/hr 10/21/19 11:26 10/21/19 12:21 Normal Saline - IV 10/21/19 12:25 1,000 mls/hr ASDIR STA Administration Ondansetron HCl 4 mg 10/21/19 11:26 10/21/19 12:21 Zofran Injection IVPUSH 10/21/19 11:27 4 mg ONCE ONE Administration Medical Decision Making - Medical Decision Making 10/21/19 13:49 Patient seen and evaluated with the nurse practitioner. I agree with the overall evaluation, assessment, and management with the following summary of visit: 23-year-old female with no significant past medical history and normal first trimester presents with transient lightheadedness and nausea without other red flags on history or physical exam. No focal cardiopulmonary or neurological complaints. Vitals as noted, exam as noted Labs are within normal limits, patient feels well and is ambulating, agrees with discharge plan. Presentation potentially consistent with symptoms of , has PCP follow- up, understands return criteria. Discharge - Discharge Information Problems reviewed: Yes Clinical Impression/Diagnosis: Nausea Condition: Improved Disposition: HOME - Additional Discharge Information Prescriptions: Ondansetron HCl [Zofran] 4 mg PO TID PRN #12 tablet PRN Reason: Nausea And/Or Vomiting - Follow up/Referral Referrals: Chad Hopkins MD [Primary Care Provider] - - Patient Discharge Instructions Patient Printed Discharge Instructions: Nausea of (Alternative Therapy) Additional Instructions: Please take Zofran as needed for nausea. Eat small frequent meals throughout the day. Please follow-up with your PISTON MAKER. - Post Discharge Activity
[2019-10-21 13:53] VITALS: BP 114/76; PULSE 87; TEMP 98
== END 2019-10-21 13:50 | disposition home or self-care (01) ==
LOC: JER 10:32
PROC: 3E033GC Introduction of Other Therapeutic Substance into Peripheral Vein, Percutaneous Approach (ICD-10-PCS; principal; 2019-10-21)
DX: O26.891 Other specified pregnancy related conditions, first trimester (principal); R11.0 Nausea; Z3A.10 10 weeks gestation of pregnancy; Z88.0 Allergy status to penicillin; Z88.8 Allergy status to other drugs, medicaments and biological substances
CPT/HCPCS: 36415; 80053; 81003; 85027; 86850; 86900; 86901; 87086; 96374; 99283-25; J7030

== ENCOUNTER 2021-09-19 12:29 | Emergency (ER) | payer OTHER ==
[2021-09-19 12:41] VITALS: BMI 25.4
[2021-09-19 13:54] LABS: BASO % 0.6 % (0-2.0); HEMATOCRIT 38.2 % (32.4-45.2); HEMOGLOBIN 13.4 GM/dL (10.7-15.3); LYMPH % 3.7 % (8-40); MCH 30.6 pg (25.7-33.7); MCHC 35.2 g/dl (32.0-36.0); MEAN CELL VOLUME 87.2 fl (80-96); MEAN PLT VOLUME 8.6 fl (7.5-11.1); MONO % 6.5 % (3.8-10.2); NEUT % 89.2 % (42.8-82.8); PLATELET COUNT 242 10^3/uL (134-434); RBC 4.38 M/mm3 (3.60-5.2); RDW 12.2 % (11.6-15.6); WHITE BLOOD COUNT 7.6 K/mm3 (4.0-10.0)
[2021-09-19 14:21] LABS: ALBUMIN 3.7 g/dl (3.4-5.0); BLOOD UREA NITROGEN 8.8 mg/dL (7-18); CALCIUM 9.2 mg/dL (8.5-10.1)
[2021-09-19 14:24] LABS: CREATININE 0.6 mg/dL (0.55-1.3)
[2021-09-19 14:26] LABS: BILIRUBIN,TOTAL 0.3 mg/dL (0.2-1); TOT PROT 6.9 g/dl (6.4-8.2)
[2021-09-19 15:02] LABS: EPI CELLS >36 /uL (0-25.1); HYALINE CASTS 1 /uL (0-3.1); URINE APPEARANCE CLEAR; URINE BACTERIA 909 /uL (0-1359); URINE BILIRUBIN NEGATIVE (NEGATIVE); URINE COLOR YELLOW; URINE GLUCOSE (UA) NEGATIVE (NEGATIVE); URINE KETONE TRACE (NEGATIVE); URINE LEUK ESTERASE TRACE (NEGATIVE); URINE NITRITE NEGATIVE (NEGATIVE); URINE PROTEIN NEGATIVE (NEGATIVE); URINE RBC 24 /uL (0-23.9); URINE UROBILINOGEN 0.2 mg/dL (0.2-1.0); URINE WBC 40 /uL (0-25.8)
[2021-09-19 15:46] VITALS: TEMP 99.8
[2021-09-19 16:40] VITALS: BP 100/79; PULSE 92
== END 2021-09-19 16:40 | disposition home or self-care (01) ==
LOC: JER 12:29
PROC: 3E0333Z Introduction of Anti-inflammatory into Peripheral Vein, Percutaneous Approach (ICD-10-PCS; principal; 2021-09-19)
PROC: 3E033GC Introduction of Other Therapeutic Substance into Peripheral Vein, Percutaneous Approach (ICD-10-PCS; 2021-09-19)
DX: O21.0 Mild hyperemesis gravidarum (principal); Z3A.08 8 weeks gestation of pregnancy
CPT/HCPCS: 36415; 71045-TC-FY; 80053; 81003; 85025; 87804; 87807; 99284-25; C9803; J0131; U0003; U0005

== ENCOUNTER 2022-03-26 18:49 | Emergency (ER) | payer OTHER ==
[2022-03-26 19:01] VITALS: BMI 27.1
[2022-03-26 22:37] VITALS: BP 128/76; PULSE 75; TEMP 97.8
== END 2022-03-26 23:45 | disposition home or self-care (01) ==
LOC: JER 18:49
DX: S61.301A Unspecified open wound of left index finger with damage to nail, initial encounter (principal); W45.8XXA Other foreign body or object entering through skin, initial encounter
CPT/HCPCS: 76815; 99284-25

== ENCOUNTER 2022-04-28 22:27 | Emergency (ER) | payer OTHER ==
[2022-04-28 22:37] VITALS: RESP 20; BMI 31.3
[2022-04-29 02:31] VITALS: TEMP 98
[2022-04-29 02:33] VITALS: BP 128/83; PULSE 72
== END 2022-04-29 01:40 | disposition home or self-care (01) ==
LOC: JER 22:27
DX: U07.1 COVID-19 (principal)
CPT/HCPCS: 99283-25

== ENCOUNTER 2022-05-09 | Inpatient (IN) | payer OTHER ==
[2022-05-09] MEDS ORDERED: ELECTROLYTE-148 SOLN 1,000 ML IV SCH ×2 (01:00→06:30)
[2022-05-09] MEDS ORDERED: VANCOMYCIN/WATER 1250 MG 1,250 MG/250 ML BAG IVPB ONE (01:15)
[2022-05-09 01:52] LABS: BASO % 0.3 % (0-2.0); EOS % 0.2 % (0-4.5); HEMATOCRIT 35.1 % (32.4-45.2); HEMOGLOBIN 11.7 GM/dL (10.7-15.3); LYMPH % 12.9 % (8-40); MCHC 33.4 g/dl (32.0-36.0); MEAN CELL VOLUME 77.6 fl (80-96); MEAN PLT VOLUME 9.4 fl (7.5-11.1); MONO % 5.9 % (3.8-10.2); NEUT % 80.7 % (42.8-82.8); PLATELET COUNT 252 10^3/uL (134-434); RBC 4.52 M/mm3 (3.60-5.2); RDW 13.7 % (11.6-15.6); WHITE BLOOD COUNT 13.5 K/mm3 (4.0-10.0)
[2022-05-09 01:59] LABS: INR 0.97 (0.83-1.09); PROTHROMBIN TIME (PATIENT) 11.2 SEC (9.7-13.0)
[2022-05-09 02:02] LABS: ACTIVATED PTT 30.3 SECONDS (25.2-36.5)
[2022-05-09 02:19] LABS: CALCIUM 9.3 mg/dL (8.5-10.1)
[2022-05-09 02:20] LABS: BLOOD UREA NITROGEN 8.9 mg/dL (7-18)
[2022-05-09 02:22] LABS: CREATININE 0.5 mg/dL (0.55-1.3)
[2022-05-09] MEDS ORDERED: VANCOMYCIN/WATER 1250 MG 1,250 MG/250 ML BAG IVPB SCH (02:30)
[2022-05-09] MEDS ORDERED: PROMETHAZINE HCL 25 MG/1 ML VIAL IVPB ONE (03:45)
[2022-05-09] MEDS ORDERED: BUTORPHANOL TARTRATE 1 MG/ML VIAL IVPB ONE (03:45)
[2022-05-09] MEDS ORDERED: BUTORPHANOL TARTRATE 1 MG/ML VIAL ONE (04:00)
[2022-05-09] MEDS ORDERED: PROMETHAZINE HCL 25 MG/1 ML VIAL ONE (04:00)
[2022-05-09 05:30] VITALS: BMI 31.3
[2022-05-09] MEDS ORDERED: FENTANYL/BUPIVACAINE/NS/PF - PCEA - 50 ML DISP.SYRIN EP ONE (06:44)
[2022-05-09] MEDS ORDERED: NALOXONE HCL 0.4 MG/ML VIAL IVPUSH PRN ×2 (07:01→07:07)
[2022-05-09] MEDS ORDERED: FENTANYL/BUPIVACAINE/NS/PF - PCEA - 50 ML DISP.SYRIN EP SCH ×3 (07:15→08:48)
[2022-05-09] MEDS ORDERED: PROPOFOL 40 ML ONE (07:58)
[2022-05-09] MEDS ORDERED: morphine SULFATE/PF 1 MG/2 ML (2cc Syringe - QUVA) ONE ×2 (07:58→08:34)
[2022-05-09] MEDS ORDERED: SUCCINYLCHOLINE CHLORIDE 200 MG/10 ML SYRINGE ONE (07:59)
[2022-05-09] MEDS ORDERED: ePHEDrine SULFATE 50 MG/1 ML AMPULE ONE (08:00)
[2022-05-09] MEDS ORDERED: CLINDAMYCIN PHOSPHATE 900 MG/6 ML VIAL IVPB ONE (08:08)
[2022-05-09] MEDS ORDERED: ACETAMINOPHEN 325 MG TABLET (FP) PO PRN ×2 (08:09→10:21)
[2022-05-09] MEDS ORDERED: ONDANSETRON 4 MG/2 ML VIAL ONE (08:32)
[2022-05-09] MEDS ORDERED: KETOROLAC TROMETHAMINE 30 MG/1 ML VIAL ONE (08:32)
[2022-05-09] MEDS ORDERED: OXYTOCIN 10 UNITS/ML VIAL ONE (08:37)
[2022-05-09 08:56] LABS: CORD BASE EXCESS -6.2 mmol/L (0-2); CORD HCO3 19.3 mmHg (20-29); CORD PCO2 38.3 mmHg (30-78); CORD pH 7.32 (7.14-7.44)
[2022-05-09] MEDS ORDERED: OXYTOCIN 20 UNITS in 0.9% NS 20 UNIT/1,000 ML INFUS.BAG IV SCH (09:00)
[2022-05-09] MEDS ORDERED: CLINDAMYCIN 900 MG PREMIX IVPB 900 MG/50 ML BAG IVPB SCH (10:00)
[2022-05-09] MEDS ORDERED: IBUPROFEN 600 MG TABLET (FP) PO PRN (10:21)
[2022-05-09] MEDS ORDERED: morphine SULFATE/PF 1 MG/2 ML (2cc Syringe - QUVA) EP ONE (10:21)
[2022-05-09] MEDS ORDERED: ONDANSETRON 4 MG/2 ML VIAL IVPUSH PRN (10:21)
[2022-05-09] MEDS ORDERED: OXYTOCIN 20 UNITS in 0.9% NS 20 UNIT/1,000 ML INFUS.BAG IV ONE (10:26)
[2022-05-09] MEDS: IBUPROFEN 800 MG/8 ML IJ IVPB PRN ×2 (13:07→23:18)
[2022-05-09] MEDS ORDERED: oxyCODONE HCL 5 MG TABLET PO PRN (20:09)
[2022-05-10] MEDS: IBUPROFEN 800 MG/8 ML IJ IVPB PRN (06:01)
[2022-05-10] MEDS ORDERED: BISACODYL 10 MG SUPP.RECT RC PRN (08:09)
[2022-05-10 10:19] VITALS: RESP 18
[2022-05-10] MEDS: SIMETHICONE 80 MG TAB.CHEW (FP) PO PRN ×3 (10:57→21:32)
[2022-05-10] MEDS: IBUPROFEN 600 MG TABLET (FP) PO PRN ×2 (15:54→21:33)
[2022-05-11] MEDS: SIMETHICONE 80 MG TAB.CHEW (FP) PO PRN ×2 (02:06→06:51)
[2022-05-11] MEDS: IBUPROFEN 600 MG TABLET (FP) PO PRN ×4 (06:51→21:46)
[2022-05-11 22:21] VITALS: PULSE 85; TEMP 98.7
[2022-05-12] MEDS: IBUPROFEN 600 MG TABLET (FP) PO PRN ×2 (04:18→10:40)
[2022-05-12 10:32] VITALS: BP 120/80
[2022-05-12] MEDS: SIMETHICONE 80 MG TAB.CHEW (FP) PO PRN (10:41)
== END 2022-05-12 13:35 | disposition home or self-care (01) | DRG 540 ==
LOC: JDEL → JLDR 00:55 → J3W 11:30
PROVIDERS: ADMIT Student in an Organized Health Care Education/Training Program; ATTEND Student in an Organized Health Care Education/Training Program
PROC: 10D00Z1 Extraction of Products of Conception, Low, Open Approach (ICD-10-PCS; principal; 2022-05-09)
DX: O66.41 Failed attempted vaginal birth after previous cesarean delivery (principal); O42.013 Preterm premature rupture of membranes, onset of labor within 24 hours of rupture, third trimester; O48.0 Post-term pregnancy; O76 Abnormality in fetal heart rate and rhythm complicating labor and delivery; O99.824 Streptococcus B carrier state complicating childbirth; Z86.16 Personal history of COVID-19; Z3A.41 41 weeks gestation of pregnancy; Z37.0 Single live birth
CPT/HCPCS: 36415; 36600; 59025; 80048; 82803; 85025; 85610; 85730; 86780; 86850; 86900; 86901; 88307-TC; C9803-CS; U0003; U0005

== ENCOUNTER 2022-07-27 16:01 | Emergency (ER) | payer OTHER ==
[2022-07-27 16:26] VITALS: BP 112/69; PULSE 83; RESP 17; TEMP 98.1; BMI 29.2
[2022-07-27] MEDS ORDERED: IBUPROFEN 600 MG TABLET (FP) PO ONE ×2 (17:36→17:43)
== END 2022-07-27 18:02 | disposition home or self-care (01) ==
LOC: JERFT 16:01
DX: M79.631 Pain in right forearm (principal); V49.50XA Passenger injured in collision with unspecified motor vehicles in traffic accident, initial encounter
CPT/HCPCS: 73090-TC-RT-FY; 99283-25

== ENCOUNTER 2022-12-10 19:05 | Emergency (ER) | payer OTHER ==
[2022-12-10 19:20] VITALS: BP 121/82; PULSE 79; RESP 18; TEMP 98.9; BMI 29.2
[2022-12-10] MEDS ORDERED: ONDANSETRON *ODT* 4 MG TABLET ONE (20:44)
[2022-12-10] MEDS ORDERED: ONDANSETRON 4 MG TABLET PO ONE (20:44)
== END 2022-12-10 21:45 | disposition home or self-care (01) ==
LOC: JERFT 19:05
DX: A08.4 Viral intestinal infection, unspecified (principal)
CPT/HCPCS: 99283-25

== ENCOUNTER 2023-02-06 01:24 | Emergency (ER) | payer OTHER ==
[2023-02-06 01:32] VITALS: BP 100/61; PULSE 92; RESP 17; TEMP 99.3; BMI 30.2
[2023-02-06] MEDS ORDERED: DEXAMETHASONE SOD PHOSPHATE 10 MG/1 ML VIAL PO ONE (03:16)
[2023-02-06] MEDS ORDERED: DEXAMETHASONE 4 MG TABLET (FP) ONE (03:26)
[2023-02-06] MEDS ORDERED: ALBUTEROL SO4 HFA INHALER IH ONE ×2 (03:58→04:14)
== END 2023-02-06 04:34 | disposition home or self-care (01) ==
LOC: JER 01:24
PROC: 3E0F7GC Introduction of Other Therapeutic Substance into Respiratory Tract, Via Natural or Artificial Opening (ICD-10-PCS; principal; 2023-02-06)
PROC: 3E033GC Introduction of Other Therapeutic Substance into Peripheral Vein, Percutaneous Approach (ICD-10-PCS; 2023-02-06)
DX: R07.0 Pain in throat (principal); R68.83 Chills (without fever); H92.01 Otalgia, right ear; R06.02 Shortness of breath; R07.89 Other chest pain; R13.10 Dysphagia, unspecified; R11.0 Nausea; R06.00 Dyspnea, unspecified; J02.9 Acute pharyngitis, unspecified; Z20.822 Contact with and (suspected) exposure to COVID-19
CPT/HCPCS: 0241U-QW; 87651; 94640; 96374; 99284-25; J1100

== ENCOUNTER 2023-09-04 22:33 | Emergency (ER) | payer OTHER ==
[2023-09-04 22:40] VITALS: BP 123/68; PULSE 59; RESP 18; TEMP 98.5; BMI 25.2
[2023-09-04] MEDS ORDERED: FAMOTIDINE 20 MG/50 ML IVPB 20 MG/50 ML MG IVPB ONE (23:58)
[2023-09-04] MEDS ORDERED: ONDANSETRON 4 MG/2 ML VIAL IVPUSH ONE (23:58)
[2023-09-04] MEDS ORDERED: SODIUM CHLORIDE 0.9% 500 ML INFUS.BAG IV ONE (23:58)
[2023-09-04] MEDS ORDERED: MAG HYDROX/AL HYDROX/SIMETH -MYLANTA- ORAL SUSPENSION PO ONE (23:59)
[2023-09-05] MEDS ORDERED: FAMOTIDINE 20 MG/50 ML IVPB 20 MG/50 ML MG IVPB ONE (00:22)
[2023-09-05] MEDS ORDERED: MAG HYDROX/AL HYDROX/SIMETH 30 ML UNIT-DOSE CUP ONE (00:22)
[2023-09-05] MEDS ORDERED: ONDANSETRON 4 MG/2 ML VIAL ONE (00:22)
[2023-09-05 00:58] LABS: BASO % 0.9 % (0-2.0); EOS % 0.6 % (0-4.5); HEMATOCRIT 38.7 % (32.4-45.2); HEMOGLOBIN 13.2 GM/dL (10.7-15.3); LYMPH % 27.6 % (8-40); MCH 28.8 pg (25.7-33.7); MCHC 34.1 g/dl (32.0-36.0); MEAN CELL VOLUME 84.6 fl (80-96); MEAN PLT VOLUME 8.9 fl (7.5-11.1); MONO % 5.1 % (3.8-10.2); NEUT % 65.8 % (42.8-82.8); PLATELET COUNT 268 10^3/uL (134-434); RBC 4.58 M/mm3 (3.60-5.2); RDW 14.2 % (11.6-15.6)
[2023-09-05 01:05] LABS: POTASSIUM 3.6 mmol/L (3.5-5.1)
[2023-09-05 01:08] LABS: ALBUMIN 3.8 g/dl (3.4-5.0); CALCIUM 9.3 mg/dL (8.5-10.1)
[2023-09-05 01:11] LABS: CREATININE 0.6 mg/dL (0.55-1.3)
[2023-09-05 01:13] LABS: BILIRUBIN,TOTAL 0.4 mg/dL (0.2-1); TOT PROT 7.3 g/dl (6.4-8.2)
== END 2023-09-05 01:53 | disposition home or self-care (01) ==
LOC: JER 22:33
PROC: 3E033GC Introduction of Other Therapeutic Substance into Peripheral Vein, Percutaneous Approach (ICD-10-PCS; principal; 2023-09-05)
PROC: 3E033GC Introduction of Other Therapeutic Substance into Peripheral Vein, Percutaneous Approach (ICD-10-PCS; 2023-09-05)
DX: R11.2 Nausea with vomiting, unspecified (principal); R10.9 Unspecified abdominal pain; R68.83 Chills (without fever); Z20.822 Contact with and (suspected) exposure to COVID-19
CPT/HCPCS: 0241U-QW; 36415; 80053; 83690; 84703; 85025; 99284-25

== ENCOUNTER 2023-09-10 05:16 | Emergency (ER) | payer OTHER ==
[2023-09-10 05:27] VITALS: BMI 25.2
[2023-09-10] MEDS ORDERED: morphine CARPU-JECT 2 MG/1 ML DISP.SYRIN IVPUSH ONE (05:40)
[2023-09-10] MEDS ORDERED: SODIUM CHLORIDE 0.9% 500 ML INFUS.BAG IV ONE (05:40)
[2023-09-10 06:53] LABS: BASO % 0.6 % (0-2.0); EOS % 0.2 % (0-4.5); HEMATOCRIT 34.2 % (32.4-45.2); HEMOGLOBIN 11.7 GM/dL (10.7-15.3); LYMPH % 16.1 % (8-40); MCH 28.5 pg (25.7-33.7); MCHC 34.2 g/dl (32.0-36.0); MEAN CELL VOLUME 83.4 fl (80-96); MEAN PLT VOLUME 9.2 fl (7.5-11.1); MONO % 3.7 % (3.8-10.2); NEUT % 79.4 % (42.8-82.8); PLATELET COUNT 323 10^3/uL (134-434); RBC 4.09 M/mm3 (3.60-5.2); RDW 13.9 % (11.6-15.6); WHITE BLOOD COUNT 12.7 K/mm3 (4.0-10.0)
[2023-09-10 07:01] LABS: INR 1.09 (0.83-1.09); PROTHROMBIN TIME (PATIENT) 12.6 SEC (9.7-13.0)
[2023-09-10 07:06] LABS: POTASSIUM 4.2 mmol/L (3.5-5.1)
[2023-09-10 07:08] LABS: BLOOD UREA NITROGEN 15.6 mg/dL (7-18); CALCIUM 9.7 mg/dL (8.5-10.1)
[2023-09-10 07:11] LABS: CREATININE 0.8 mg/dL (0.55-1.3)
[2023-09-10 07:13] LABS: BILIRUBIN,TOTAL 0.4 mg/dL (0.2-1); TOT PROT 7.6 g/dl (6.4-8.2)
[2023-09-10 09:42] VITALS: RESP 16
[2023-09-10 09:44] LABS: BASO % 0.3 % (0-2.0); EOS % 0.1 % (0-4.5); HEMATOCRIT 26.2 % (32.4-45.2); HEMOGLOBIN 9.2 GM/dL (10.7-15.3); LYMPH % 17.4 % (8-40); MCH 29.5 pg (25.7-33.7); MEAN CELL VOLUME 84.2 fl (80-96); MEAN PLT VOLUME 8.5 fl (7.5-11.1); MONO % 3.6 % (3.8-10.2); NEUT % 78.6 % (42.8-82.8); PLATELET COUNT 247 10^3/uL (134-434); RBC 3.11 M/mm3 (3.60-5.2); RDW 13.4 % (11.6-15.6); WHITE BLOOD COUNT 10.6 K/mm3 (4.0-10.0)
[2023-09-10 12:40] VITALS: BP 102/60; PULSE 73; TEMP 98
== END 2023-09-10 12:40 | disposition home or self-care (01) ==
LOC: JER 05:16
PROC: 3E033GC Introduction of Other Therapeutic Substance into Peripheral Vein, Percutaneous Approach (ICD-10-PCS; principal; 2023-09-10)
DX: N93.9 Abnormal uterine and vaginal bleeding, unspecified (principal); R53.1 Weakness
CPT/HCPCS: 36415; 76830-TC; 80053; 84702; 85025; 85610; 86850; 86900; 86901; 93005; 93010; 99285-25

== ENCOUNTER 2024-05-10 22:14 | Emergency (ER) | payer OTHER ==
[2024-05-10 22:19] VITALS: BP 112/60; PULSE 60; RESP 18; TEMP 98.1; BMI 24.4
== END 2024-05-11 01:31 | disposition home or self-care (01) ==
LOC: JER 22:14
DX: R07.9 Chest pain, unspecified (principal); B35.8 Other dermatophytoses; R21 Rash and other nonspecific skin eruption
CPT/HCPCS: 36415; 71046-TC-FY; 83880; 84484; 84703; 93005; 93010; 99285-25

== ENCOUNTER 2024-07-26 11:36 | Emergency (ER) | payer OTHER ==
[2024-07-26 11:49] VITALS: BP 117/76; PULSE 62; RESP 20; TEMP 97.6; BMI 26.1
[2024-07-26] MEDS ORDERED: ACETAMINOPHEN 325 MG TABLET (FP) ONE (12:26)
[2024-07-26] MEDS: ACETAMINOPHEN 500 MG TABLET (FP) PO ONE (12:30)
== END 2024-07-26 15:24 | disposition home or self-care (01) ==
LOC: JER 11:36
DX: S01.01XA Laceration without foreign body of scalp, initial encounter (principal); W01.198A Fall on same level from slipping, tripping and stumbling with subsequent striking against other object, initial encounter
CPT/HCPCS: 70450-TC; 72125-TC; 84703; 99284-25

== ENCOUNTER 2024-08-09 13:44 | Emergency (ER) | payer OTHER ==
[2024-08-09 13:54] VITALS: BP 114/80; PULSE 67; RESP 16; TEMP 98.3; BMI 25.4
[2024-08-09] MEDS ORDERED: LIDOCAINE 2.5%/PRILOCAINE 2.5% (5 Gram/TUBE) TP ONE (14:18)
[2024-08-09] MEDS: LIDOCAINE 2.5%/PRILOCAINE 2.5% (5 Gram/TUBE) TP ONE (14:20)
== END 2024-08-09 15:00 | disposition home or self-care (01) ==
LOC: JERFT 13:44 → JER 13:44 → JERFT 15:00
DX: K64.5 Perianal venous thrombosis (principal)
CPT/HCPCS: 99283-25

== ENCOUNTER 2024-10-05 17:18 | Emergency (ER) | payer OTHER ==
[2024-10-05 17:32] VITALS: BP 133/76; PULSE 65; RESP 18; TEMP 97.7; BMI 26.1
[2024-10-05] MEDS ORDERED: ONDANSETRON 4 MG/2 ML VIAL ONE (18:09)
[2024-10-05] MEDS ORDERED: ACETAMINOPHEN INJECTION 100 ML ONE (18:09)
[2024-10-05] MEDS ORDERED: FAMOTIDINE 20 MG/50 ML IVPB 20 MG/50 ML MG IVPB ONE (18:09)
[2024-10-05 18:16] LABS: BASO % 0.3 % (0-2.0); EOS % 0.3 % (0-4.5); HEMATOCRIT 39.3 % (32.4-45.2); HEMOGLOBIN 12.4 GM/dL (10.7-15.3); LYMPH % 5.2 % (8-40); MCHC 31.5 g/dl (32.0-36.0); MEAN CELL VOLUME 72.9 fl (80-96); MEAN PLT VOLUME 8.9 fl (7.5-11.1); NEUT % 89.2 % (42.8-82.8); PLATELET COUNT 310 10^3/uL (134-434); RDW 17.1 % (11.6-15.6); WHITE BLOOD COUNT 13.8 K/mm3 (4.0-10.0)
[2024-10-05] MEDS: SODIUM CHLORIDE 1,000 ML IV STA (18:21)
[2024-10-05] MEDS: ACETAMINOPHEN 1000 MG/100 ML BAG IVPB ONE (18:21)
[2024-10-05] MEDS: FAMOTIDINE 20 MG/50 ML IVPB 20 MG/50 ML MG IVPB ONE (18:21)
[2024-10-05] MEDS: ONDANSETRON 4 MG/2 ML VIAL IVPUSH ONE (18:21)
[2024-10-05 18:54] LABS: POTASSIUM 4.4 mmol/L (3.5-5.1)
[2024-10-05 18:56] LABS: BLOOD UREA NITROGEN 21.2 mg/dL (7-18); CALCIUM 9.9 mg/dL (8.5-10.1)
[2024-10-05 18:57] LABS: ALBUMIN 4.5 g/dl (3.4-5.0)
[2024-10-05 18:59] LABS: CREATININE 0.9 mg/dL (0.55-1.3)
[2024-10-05 19:01] LABS: BILIRUBIN,TOTAL 0.6 mg/dL (0.2-1); TOT PROT 8.6 g/dl (6.4-8.2)
[2024-10-05 19:31] LABS: EPI CELLS 21 /uL (0-25.1); HYALINE CASTS 2 /uL (0-3.1); PH,URINE 5.5 (5.0-8.0); URINE APPEARANCE CLEAR; URINE BACTERIA 396 /uL (0-1359); URINE BILIRUBIN NEGATIVE (NEGATIVE); URINE COLOR YELLOW; URINE GLUCOSE (UA) NEGATIVE (NEGATIVE); URINE KETONE 3+ (NEGATIVE); URINE LEUK ESTERASE TRACE (NEGATIVE); URINE NITRITE NEGATIVE (NEGATIVE); URINE PROTEIN TRACE (NEGATIVE); URINE RBC 28 /uL (0-23.9); URINE WBC 74 /uL (0-25.8)
[2024-10-05 19:33] LABS: HCG,QUALITATIVE URINE Negative
[2024-10-05 19:39] LABS: HIV INTERPRETATION NEGATIVE (NEGATIVE)
[2024-10-05] MEDS ORDERED: ONDANSETRON 4 MG TABLET PO ONE (19:59)
[2024-10-05] MEDS: ONDANSETRON 4 MG TABLET PO ONE (20:03)
== END 2024-10-05 20:04 | disposition home or self-care (01) ==
LOC: JER 17:18
PROC: 3E033GC Introduction of Other Therapeutic Substance into Peripheral Vein, Percutaneous Approach (ICD-10-PCS; principal; 2024-10-05)
PROC: 3E033NZ Introduction of Analgesics, Hypnotics, Sedatives into Peripheral Vein, Percutaneous Approach (ICD-10-PCS; 2024-10-05)
PROC: 3E033GC Introduction of Other Therapeutic Substance into Peripheral Vein, Percutaneous Approach (ICD-10-PCS; 2024-10-05)
DX: R11.2 Nausea with vomiting, unspecified (principal); R19.7 Diarrhea, unspecified
CPT/HCPCS: 36415; 80053; 81003; 83690; 84703; 85025; 86803; 87086; 87389; 99284-25; J0131